=== PATIENT | male | born 1955 | race Caucasian/White ===

== ENCOUNTER 2016-12-10 11:47 | Emergency (ER) | payer OTHER ==
[2016-12-10 12:36] VITALS: BP 137/85
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
== END 2016-12-10 14:52 | disposition home or self-care (01) ==
LOC: UCEAST 11:47
DX: S80.812A Abrasion, left lower leg, initial encounter (principal); L03.116 Cellulitis of left lower limb; W22.8XXA Striking against or struck by other objects, initial encounter; Y93.H2 Activity, gardening and landscaping; Y92.9 Unspecified place or not applicable
CPT/HCPCS: 99212; G0463

== ENCOUNTER 2017-05-02 09:45 | Emergency (ER) | payer OTHER ==
[2017-05-02 09:58] VITALS: BP 140/73
--- NOTE | 2017-05-02 14:04 | RAD ---
INDICATION: Right femoral pain COMPARISON: None TECHNIQUE: AP and lateral views were obtained. FINDINGS: There are no acute bony abnormalities about the femur. There is advanced osteocytic change about the knee. Soft tissues are intact. IMPRESSION: NO ACUTE BONY ABNORMALITIES ABOUT THE FEMUR.
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
== END 2017-05-02 12:41 | disposition home or self-care (01) ==
LOC: UCEAST 09:45
DX: M54.16 Radiculopathy, lumbar region (principal); M79.651 Pain in right thigh; M25.551 Pain in right hip; R29.6 Repeated falls; I10 Essential (primary) hypertension; Z87.442 Personal history of urinary calculi
CPT/HCPCS: 99211; G0463

== ENCOUNTER 2020-02-17 15:37 | Observation (INO) ==
[2020-02-17 18:01] LABS: ALT 27 U/L (7-52); AST 35 U/L (13-39); Albumin 4.2 g/dL (3.2-5.2); Albumin/Globulin Ratio 1.4 (1-3); Alkaline Phosphatase 89 U/L (34-104); Anion Gap 8 mmol/L (2-11); BUN/Creatinine Ratio 13.9 (8-20); Blood Urea Nitrogen 14 mg/dL (6-24); CO2 Carbon Dioxide 27 mmol/L (22-32); Calcium 9.1 mg/dL (8.6-10.3); Chloride 107 mmol/L (101-111); EGFR African American 89.4 (>60); EGFR Non-African American 73.9 (>60); Glucose 71 mg/dL (70-100); Potassium 3.6 mmol/L (3.5-5.0); Sodium 142 mmol/L (135-145); Total Protein 7.2 g/dL (6.4-8.9)
[2020-02-17 18:03] LABS: Troponin I 0.13 ng/mL (<0.03)
[2020-02-17 18:18] LABS: TSH Ultra Thyroid Stim Horm 0.96 mcIU/mL (0.34-5.60)
[2020-02-17 18:43] LABS: ABS Basophils 0.1 10^3/ul (0-0.2); ABS Eosinophils 0.1 10^3/ul (0-0.6); ABS Lymphocytes 1.8 10^3/ul (1.0-4.8); ABS Monocytes 0.5 10^3/ul (0-0.8); ABS Neutrophils 3.7 10^3/ul (1.5-7.7); Eosinophil % 1.7 %; Hematocrit 44 % (42-52); Hemoglobin 14.9 g/dL (14.0-18.0); Lymphocyte % 28.8 %; Mean Corpuscular HGB Conc 33 g/dL (31-36); Mean Corpuscular Hemoglobin 30 pg (27-31); Mean Corpuscular Volume 88 fL (80-94); Mean Platelet Volume 7.2 fL (7.4-10.4); Nucleated Red Blood Cells % 0.1; Platelet Count 266 10^3/uL (150-450); Red Blood Count 5.04 10^6 /uL (4.18-5.48); Red Cell Distribution Width 14 % (10-15); White Blood Count 6.2 10^3/uL (3.5-10.8)
[2020-02-17 19:06] LABS: Troponin I 0.11 ng/mL (<0.03)
[2020-02-17] MEDS ORDERED: Iohexol 350 (CONTRAST) 500 ML MDV IV ONE (20:28)
[2020-02-17] MEDS ORDERED: Enoxaparin 40 MG/0.4 ML SYR SUBCUT SCH (22:00)
[2020-02-17 22:11] LABS: Troponin I 0.13 ng/mL (<0.03)
[2020-02-18 05:18] LABS: Troponin I 0.13 ng/mL (<0.03)
[2020-02-18 06:10] LABS: BUN/Creatinine Ratio 15.7 (8-20); Calcium 8.9 mg/dL (8.6-10.3); EGFR African American 88.4 (>60); EGFR Non-African American 73.1 (>60); HDL Cholesterol 25.7 mg/dL; Potassium 3.4 mmol/L (3.5-5.0)
[2020-02-18] MEDS ORDERED: Potassium Chlor 20 meq TAB.ER PO ONE (08:09)
[2020-02-18 16:22] VITALS: BP 122/69
== END 2020-02-18 16:30 | disposition home or self-care (01) ==
LOC: ED 15:37 → MEDTELE 15:37
PROVIDERS: ADMIT Pediatrics; ATTEND Internal Medicine

== ENCOUNTER 2021-08-15 10:57 | Inpatient (IN) ==
[2021-08-15 11:25] LABS: ABS Basophils 0.1 10^3/ul (0-0.2); ABS Eosinophils 0.1 10^3/ul (0-0.6); ABS Lymphocytes 0.9 10^3/ul (1.0-4.8); ABS Monocytes 0.6 10^3/ul (0-0.8); ABS Neutrophils 4.2 10^3/ul (1.5-7.7); Eosinophil % 1.9 %; Hematocrit 47 % (42-52); Hemoglobin 15.6 g/dL (14.0-18.0); Mean Corpuscular HGB Conc 33 g/dL (31-36); Mean Corpuscular Hemoglobin 28 pg (27-31); Mean Corpuscular Volume 84 fL (80-94); Mean Platelet Volume 7.2 fL (7.4-10.4); Platelet Count 190 10^3/uL (150-450); Red Blood Count 5.52 10^6 /uL (4.18-5.48); Red Cell Distribution Width 15 % (10-15); White Blood Count 5.9 10^3/uL (3.5-10.8)
[2021-08-15 11:37] LABS: INR 0.96 (0.86-1.15)
[2021-08-15] MEDS ORDERED: Heparin - STEMI 5,000 UNITS/ML 1 ml VIAL IV ONE (12:00)
[2021-08-15 12:03] LABS: Albumin 4.4 g/dL (3.2-5.2); Albumin/Globulin Ratio 1.6 (1-3); Calcium 9.1 mg/dL (8.6-10.3); Globulin 2.8 g/dL (2-4); Total Bilirubin 0.5 mg/dL (0.2-1.0); Total Protein 7.2 g/dL (6.4-8.9); eGFR CKD-EPI 75.6 (>60)
[2021-08-15] MEDS ORDERED: Heparin 1,000 UNIT/ML 10 ml (10,000 UNITS) CATHLAB/DIALYSIS ONE (12:09)
[2021-08-15] MEDS ORDERED: VERAPAMIL 2.5 MG/ML 2 ML VIAL ** 5 mg/2 ml ONE (12:09)
[2021-08-15] MEDS ORDERED: Heparin 2 UNITS/ML 1000 mls 1,000 ML IV ONE (12:09)
[2021-08-15] MEDS ORDERED: nitroGLYCERIN DRIP (PHA MIX) 25,000 MCG/250 ML BAG ONE (12:09)
[2021-08-15] MEDS ORDERED: Lidocaine 1% MPF 5 ML VIAL ONE (12:09)
[2021-08-15] MEDS ORDERED: Iohexol 350 (CONTRAST) 200 ML MDV IV ONE (12:10)
[2021-08-15] MEDS ORDERED: Midazolam 5 mg/5 ml VIAL 1 mg/ml 5 ml VIAL (5 mg) ONE (12:20)
[2021-08-15] MEDS ORDERED: fentaNYL 100 mcg/2 ml 50 MCG/ML VIAL ONE (12:20)
[2021-08-15] MEDS ORDERED: Bivalirudin 250 MG VIAL ONE ×2 (12:46→13:21)
[2021-08-15] MEDS ORDERED: Furosemide 40 mg/4 ml IV VIAL ONE (13:53)
[2021-08-15] MEDS ORDERED: NS 0.9% 1000 ml BAG 1,000 ML IV SCH (14:15)
[2021-08-15 18:43] LABS: Phosphorus 2.8 mg/dL (2.5-5.0)
[2021-08-16 04:54] LABS: ABS Basophils 0.1 10^3/ul (0-0.2); ABS Eosinophils 0.1 10^3/ul (0-0.6); ABS Lymphocytes 1.1 10^3/ul (1.0-4.8); ABS Monocytes 0.7 10^3/ul (0-0.8); Eosinophil % 2.3 %; Hematocrit 43 % (42-52); Hemoglobin 14.8 g/dL (14.0-18.0); Lymphocyte % 17.7 %; Mean Corpuscular HGB Conc 34 g/dL (31-36); Mean Corpuscular Hemoglobin 29 pg (27-31); Mean Corpuscular Volume 83 fL (80-94); Nucleated Red Blood Cells % 0.1; Platelet Count 183 10^3/uL (150-450); Red Cell Distribution Width 14 % (10-15)
[2021-08-16 06:01] LABS: Albumin 3.7 g/dL (3.2-5.2); Calcium 8.7 mg/dL (8.6-10.3); Potassium 3.6 mmol/L (3.5-5.0); Total Bilirubin 0.7 mg/dL (0.2-1.0)
[2021-08-16 06:07] LABS: Albumin/Globulin Ratio 1.6 (1-3); Globulin 2.3 g/dL (2-4); HDL Cholesterol 27.4 mg/dL
[2021-08-16] MEDS ORDERED: Potassium Chloride LIQUID 20 MEQ/15 ML LIQUID PO ONE (07:14)
[2021-08-16] MEDS ORDERED: Perflutren Lipid Microsphere 3 ML VIAL ONE (08:36)
[2021-08-16 09:21] LABS: Magnesium 2.1 mg/dL (1.9-2.7)
[2021-08-17 11:45] VITALS: BP 115/70
[2021-08-17 15:08] LABS: Calcium 9.4 mg/dL (8.6-10.3); Magnesium 2.3 mg/dL (1.9-2.7); Potassium 4.1 mmol/L (3.5-5.0); eGFR CKD-EPI 72.3 (>60)
== END 2021-08-17 15:00 | disposition home or self-care (01) | DRG 247 ==
LOC: ED 10:57 → ICU 14:02 → SUATTDRO 14:02 → MEDTELE 08-16 12:32
PROVIDERS: ATTEND Internal Medicine

== ENCOUNTER 2023-01-06 17:15 | Observation (INO) ==
[2023-01-06] MEDS ORDERED: Iodixanol (CONTRAST) 320 MG/ML 100 ML SDV IV ONE (17:44)
[2023-01-06 18:05] LABS: ABS Basophils 0.1 10^3/uL (0.0-0.1); ABS Eosinophils 0.1 10^3/uL (0.0-0.5); ABS Lymphocytes 1.1 10^3/uL (1.0-4.8); ABS Monocytes 0.8 10^3/uL (0.0-1.1); ABS Neutrophils 3.8 10^3/uL (1.5-7.6); ABS Nucleated RBC 0.02 10^3/ul; Eosinophil % 2.5 %; Hematocrit 44.7 % (38-53); Hemoglobin 15.3 g/dL (13.2-16.3); Lymphocyte % 19.2 %; Mean Corpuscular Hemoglobin 29.8 pg (27-33); Mean Corpuscular Hgb Conc 34.2 g/dL (31-36); Mean Corpuscular Volume 87.1 fL (80-97); Mean Platelet Volume 7.5 fL (7.5-11.2); Nucleated Red Blood Cells % 0.3 /100 WBC (0.0-0.4); Platelet Count 205 10^3/uL (150-450); Red Blood Count 5.14 10^6/uL (4.06-5.63); Red Cell Distribution Width 13.6 % (12-17); White Blood Count 5.9 10^3/uL (3.6-10.2)
[2023-01-06 18:13] LABS: Activated Partial Thrombo Time 30.3 seconds (26.0-38.0); INR 1.11 (0.88-1.18)
[2023-01-06 18:21] LABS: Albumin 4.2 g/dL (3.2-5.2); Albumin/Globulin Ratio 1.4 (1-3); Calcium 9.5 mg/dL (8.6-10.3); Creatinine, Serum 1.48 mg/dL (0.67-1.17); Direct Bilirubin 0.1 mg/dL (0.03-0.18); Globulin 3.1 g/dL (2-4); HDL Cholesterol 36.8 mg/dL; Indirect Bilirubin 0.6 mg/dL (0.3-1.0); Potassium 3.7 mmol/L (3.5-5.0); Total Bilirubin 0.7 mg/dL (0.2-1.0); Total Protein 7.3 g/dL (6.4-8.9); eGFR CKD-EPI 50.9 (>60)
[2023-01-07 02:01] LABS: Urine Appearance Clear; Urine Bilirubin Negative (Negative); Urine Blood 1+ (Negative); Urine Color Yellow; Urine Glucose 3+(>=500 mg/dL) (Negative); Urine Ketones Negative (Negative); Urine Nitrite Negative (Negative); Urine Protein Negative (Negative); Urine Specific Gravity 1.022 (1.002-1.030); Urine Urobilinogen Negative (Negative)
[2023-01-07 02:15] LABS: Urine Osmo 498 mOsm/kg (150-1150)
[2023-01-07 02:21] LABS: Urine Bacteria Absent (Absent); Urine Red Blood Cell Trace(0-2/hpf) (Absent); Urine Squamous Epithelial Cell Present (Absent); Urine White Blood Cell Trace(0-5/hpf) (Absent)
[2023-01-07] MEDS ORDERED: Triamcinolone 0.025% OINT 15 GM TUBE TOPICAL PRN (06:28)
[2023-01-07] MEDS ORDERED: VITAMIN B12 FOLIC ACID PO SCH (09:00)
[2023-01-07] MEDS: Cholecalciferol (VIT D3) 1,000 unit TAB PO SCH (09:20)
[2023-01-07] MEDS: Fluticasone NASAL SPRAY 50MCG 16 gm SPRAY BTL INTRANASAL SCH (12:11)
[2023-01-07] MEDS: oxyCODONE/Acetamin 5/325 mg TAB PO PRN ×2 (14:06→22:16)
[2023-01-07] MEDS ORDERED: Sulfur Hexaflouride MICROSPHR 25 MG VIAL ONE (14:58)
[2023-01-08 06:53] LABS: Calcium 8.8 mg/dL (8.6-10.3); Creatinine, Serum 1.28 mg/dL (0.67-1.17); eGFR CKD-EPI 60.6 (>60)
[2023-01-08 09:00] LABS: Osmolality Serum 290 mOsm/kg (275-295)
[2023-01-08] MEDS: Fluticasone NASAL SPRAY 50MCG 16 gm SPRAY BTL INTRANASAL SCH (09:36)
[2023-01-08] MEDS: Cholecalciferol (VIT D3) 1,000 unit TAB PO SCH (09:36)
[2023-01-08 10:25] VITALS: BP 152/70
== END 2023-01-08 13:23 | disposition home or self-care (01) ==
LOC: ED 17:15 → EDHOLD 17:15 → SUATTDRO 21:00 → MEDTELE 23:02
PROVIDERS: ADMIT Internal Medicine; ATTEND Internal Medicine